=== PATIENT | male | born 1965 | race Caucasian/White ===

== ENCOUNTER → 2019-03-18 | Outpatient (CLI) | payer BC, OTHER | LOC: VAS 16:39 → RAD 17:00 | DX: I51.89 Other ill-defined heart diseases (principal) ==

== ENCOUNTER → 2019-04-04 | Outpatient (CLI) | payer BC, OTHER | LOC: RAD 08:15 | DX: K76.0 Fatty (change of) liver, not elsewhere classified (principal) ==

== ENCOUNTER → 2020-12-22 | Outpatient (REF) | LOC: LAB 08:31 | DX: E11.9 Type 2 diabetes mellitus without complications (principal); K90.9 Intestinal malabsorption, unspecified; I10 Essential (primary) hypertension ==

== ENCOUNTER → 2021-03-22 | Outpatient (REF) | LOC: LAB 08:39 | DX: Z00.00 Encounter for general adult medical examination without abnormal findings (principal); Z12.5 Encounter for screening for malignant neoplasm of prostate ==

== ENCOUNTER 2023-04-19 11:38 | Outpatient (RCR) | payer BC, OTHER ==
[2023-04-04 16:41] VITALS: BP 129/73
[~2023-04-19] VITALS: Ht 190.5 cm; Wt 154.6 kg
[2023-04-19 11:54] VITALS: BP 130/70
== END 2023-04-27 | disposition home or self-care (01) ==
LOC: AMSURD
DX: Z79.899 Other long term (current) drug therapy (principal)
CPT/HCPCS: J1071

== ENCOUNTER 2023-05-16 18:16 | Outpatient (RCR) | payer BC, OTHER ==
[2023-05-02 17:53] VITALS: BP 149/77
[~2023-05-16] VITALS: Ht 190.5 cm; Wt 154.6 kg
[2023-05-16 18:30] VITALS: BP 151/78
== END 2023-05-28 | disposition home or self-care (01) ==
LOC: AMSURD
DX: E29.1 Testicular hypofunction (principal)
CPT/HCPCS: J1071

== ENCOUNTER 2023-06-27 17:28 | Outpatient (RCR) | payer BC, OTHER ==
[2023-05-30 18:43] VITALS: BP 147/77
[2023-06-13 17:54] VITALS: BP 151/83
[~2023-06-27] VITALS: Ht 190.5 cm; Wt 154.6 kg
[~2023-06-27 17:28] MED LIST: BENAZEPRIL HCL20 MG PO; HYDRALAZINE HYD50 MG PO; HYDROCHLOROTHIA50 M1 PO; LATANOPROST 2.2.5 ML OU; METOPROLOL SUC200 M1 PO; MOUNJARO2.5 MG/0.5 SQ; TESTOSTERO200 MG/1 M IM; Testosterone Cyp in Oil 200 MG/ML 1 ML VIAL IM ONE; Testosterone Cyp in Oil 200 MG/ML 1 ML VIAL IM SCH; VITAMIN D21250 MCG PO; [UNRECOGNIZED DRUG - OTHER] PO
[2023-06-27] MEDS ORDERED: Testosterone Cyp in Oil 200 MG/ML 1 ML VIAL IM ONE (17:45)
[2023-06-27 17:49] VITALS: BP 134/74
== END 2023-06-28 | disposition home or self-care (01) ==
LOC: AMSURD
DX: E29.1 Testicular hypofunction (principal)
CPT/HCPCS: J1071

== ENCOUNTER 2023-07-25 17:34 | Outpatient (RCR) | payer BC, OTHER ==
[2023-07-11 18:23] VITALS: BP 145/71
[~2023-07-25] VITALS: Ht 190.5 cm; Wt 154.6 kg
[~2023-07-25 17:34] MED LIST changes: -Testosterone Cyp in Oil 200 MG/ML 1 ML VIAL IM SCH
[2023-07-25 17:55] VITALS: BP 154/73
== END 2023-07-27 | disposition home or self-care (01) ==
LOC: AMSURD
DX: E29.1 Testicular hypofunction (principal)
CPT/HCPCS: J1071

== ENCOUNTER → 2023-10-03 | Outpatient (CLI) | payer BC, OTHER ==
[~2023-10-03] VITALS: Ht 190.5 cm; Wt 154.6 kg
[2023-10-03 18:30] VITALS: BP 111/65
== END ==
LOC: AMSURD 17:58
DX: E29.1 Testicular hypofunction (principal)
CPT/HCPCS: J1071

== ENCOUNTER → 2023-11-15 | Outpatient (CLI) | payer BC, OTHER ==
[~2023-11-15] VITALS: Ht 190.5 cm; Wt 154.6 kg
[~2023-11-15] MED LIST changes: -Testosterone Cyp in Oil 200 MG/ML 1 ML VIAL IM ONE; +Testosterone Cyp in Oil 200 MG/ML 1 ML VIAL IM SCH
[2023-11-15 13:42] VITALS: BP 111/73
== END ==
LOC: AMSURD 13:18
DX: E29.1 Testicular hypofunction (principal)
CPT/HCPCS: J1071

== ENCOUNTER 2024-01-23 18:00 | Outpatient (RCR) | payer BC, OTHER ==
[2024-01-02 18:37] VITALS: BP 121/80
[~2024-01-23] VITALS: Ht 190.5 cm; Wt 154.6 kg
[~2024-01-23 18:00] MED LIST changes: +Testosterone Cyp in Oil 200 MG/ML 1 ML VIAL IM ONE; -Testosterone Cyp in Oil 200 MG/ML 1 ML VIAL IM SCH
== END 2024-01-27 | disposition home or self-care (01) ==
LOC: AMSURD
DX: E29.1 Testicular hypofunction (principal)
CPT/HCPCS: J1071

== ENCOUNTER 2024-02-20 17:49 | Outpatient (RCR) | payer BC, OTHER ==
[2024-01-30 18:19] VITALS: BP 117/77
[~2024-02-20] VITALS: Ht 190.5 cm; Wt 154.6 kg
[2024-02-20] MEDS ORDERED: Testosterone Cyp in Oil 200 MG/ML 1 ML VIAL IM ONE (18:00)
[2024-02-20 18:01] VITALS: BP 125/81
== END 2024-02-26 | disposition home or self-care (01) ==
LOC: AMSURD
DX: E29.1 Testicular hypofunction (principal); Z79.899 Other long term (current) drug therapy
CPT/HCPCS: J1071

== ENCOUNTER 2024-03-12 18:00 | Outpatient (RCR) | payer BC, OTHER ==
[~2024-03-12] VITALS: Ht 190.5 cm; Wt 154.6 kg
[~2024-03-12 18:00] MED LIST changes: -Testosterone Cyp in Oil 200 MG/ML 1 ML VIAL IM ONE
[2024-03-12] MEDS ORDERED: Testosterone Cyp in Oil 200 MG/ML 1 ML VIAL IM ONE (18:30)
[2024-03-12 18:35] VITALS: BP 125/73
== END 2024-03-28 | disposition home or self-care (01) ==
LOC: AMSURD
DX: E29.1 Testicular hypofunction (principal); Z79.899 Other long term (current) drug therapy
CPT/HCPCS: J1071

== ENCOUNTER → 2024-05-14 | Outpatient (CLI) | payer BC, OTHER ==
[~2024-05-14] MED LIST changes: +Testosterone Cyp in Oil 200 MG/ML 1 ML VIAL IM ONE
[2024-05-14 18:43] VITALS: BP 135/75
== END ==
LOC: AMSURD 04-28 00:07 → EDSTATUS 04-28 18:27 → AMSURD 18:25
DX: E29.1 Testicular hypofunction (principal)
CPT/HCPCS: J1071